=== PATIENT | female | born 1990 | race Caucasian/White ===

== ENCOUNTER 2024-03-27 13:59 | Emergency (ER) | payer OTHER, SELFPAY ==
[2024-03-27 14:06] VITALS: BP 158/90; PULSE 94; TEMP 36.6; O2SAT 99; BMI 34.2
--- NOTE | 2024-03-27 14:13 | ED_ITS ---
HPI - Dental/Oral General Chief complaint: Dental/Oral Stated complaint: MOUTH PAIN Time Seen by Provider: 03/27/24 14:09 Source: patient Mode of arrival: walk-in Limitations: no limitations History of Present Illness HPI Narrative: 33 year old female presents to the ED for left-sided dental pain. Onset was 1-2 days ago. Denies fever, chills, SOB, difficulty swallowing. She took Motrin 2 hours ago. Denies chance of . She reports an allergy to PCN. Related Data Previous Rx's ?Medication ?Instructions ?Recorded clindamycin HCl 300 mg capsule 300 mg PO TID 10 days #30 caps 03/27/24 Allergies Allergy/AdvReac Type Severity Reaction Status Date / Time Penicillins Allergy Severe Anaphylaxis Verified 03/27/24 14:05 Review of Systems ROS Constitutional Denies: fever or chills Eyes Denies: change in vision Ears, nose, mouth, and throat Reports: mouth pain; Denies: throat pain, neck pain, throat swelling, difficulty swallowing or ear pain Cardiovascular Denies: chest pain Respiratory Denies: shortness of breath Integumentary/Breast Denies: rash Neurological Denies: headache Exam Constitutional Vital Signs, click to edit/add: Last Vital Signs Temp 98 F 03/27/24 14:06 Pulse 94 H 03/27/24 14:06 Resp 20 03/27/24 14:06 BP 158/90 H 03/27/24 14:06 Pulse Ox 99 03/27/24 14:06 O2 Del Method Room Air 03/27/24 14:06 Common normals: no apparent distress and oriented x3 General appearance: cooperative HENMT Face and sinus: normal facial exam Nose: external nose normal External ear: external ears normal Tympanic membrane: TM normal on the left Mouth: oral and palatal mucosa normal, lip normal and tongue normal; no drooling, no muffled voice and no restricted motion Teeth and gingiva: poor dentition Throat: posterior oropharynx normal and uvula midline Other: No facial swelling. No swelling to floor of mouth. Pt speaking in full sentences, handling secretions well. Dental caries noted. No drainabe abscess. Eye Common normals: conjunctivae normal and no scleral icterus Neck & C-Spine Common normals: supple and no meningeal signs Chest Chest: symmetrical chest wall rise Respiratory Common normals: normal respiratory effort Effort & inspection: able to speak in complete sentences Cardio Rate: regular rate Neuro Common normals: oriented x3 Sensorium/orientation: awake and alert Course Vital Signs Vital signs: Vital Signs Temperature 98 F 03/27/24 14:06 Pulse Rate 94 H 03/27/24 14:06 Respiratory Rate 20 03/27/24 14:06 Blood Pressure 158/90 H 03/27/24 14:06 Pulse Oximetry 99 03/27/24 14:06 Oxygen Delivery Method Room Air 03/27/24 14:06 Temperature 98 F 03/27/24 14:06 Pulse Rate 94 H 03/27/24 14:06 Respiratory Rate 20 03/27/24 14:06 Blood Pressure 158/90 H 03/27/24 14:06 Pulse Oximetry 99 03/27/24 14:06 Oxygen Delivery Method Room Air 03/27/24 14:06 MDM - Dental/Oral MDM Narrative Medical decision making narrative: A prescription was provided for clindamycin. The patient has Motrin and Tylenol at home. She declined medication here. Follow up with a dentist for a recheck, further evaluation and treatment. Differential Diagnosis Differential diagnosis: Likely gingival abscess, dental caries, toothache and dental abscess Medical Records Attestation: I reviewed the patient's medical records. Discharge Plan Discharge Stand Alone Forms: Portal Instructions Chief Complaint: Dental/Oral Clinical Impression: Toothache, Dental infection Patient Disposition: Home, Self-Care Time of Disposition Decision: 14:11 Condition: Good Mode of Transportation: Private Vehicle Prescriptions / Home Meds: New clindamycin HCl 300 mg capsule 300 mg PO TID 10 Days Qty: 30 0RF Print Language: Georgian Instructions: Toothache (ED) Additional Instructions: Follow up with your dentist. Discharge Date/Time: 03/27/24 14:25
== END 2024-03-27 14:25 | disposition home or self-care (01) ==
LOC: ER 14:19
PROVIDERS: Emergency Provider Emergency Medicine; PCP Nurse Practitioner
DX: K04.7 Periapical abscess without sinus (principal); K08.89 Other specified disorders of teeth and supporting structures
CPT/HCPCS: 99283

== ENCOUNTER 2024-05-21 21:22 | Outpatient (REF) | payer OTHER, SELFPAY ==
--- OUTSIDE RECORDS SUMMARY | 2024-05-21 21:25 | XMS_ITS | CCD ---
Author Organization [facility] Care Team Providers Care Assistant Store Manager Operations Name Role Phone MARKER, NICKIE Admitting Unavailable MARKER, NICKIE Attending Unavailable DERRICK RUBI Primary Care Unavailable MARKER, NICKIE Consulting Unavailable AICHHOLZ, MATERIAL SPECIALIST NEETA Primary Care Unavailable PAY, DR SALDAÑA Admitting Unavailable PAY, DR SALDAÑA Attending Unavailable PAY, DR SALDAÑA Consulting Unavailable AYESHA, DR ABEBE Admitting Unavailable AYESHA, DR ABEBE Attending Unavailable AICHHOLZ, MATERIAL SPECIALIST NEETA Primary Care Unavailable AYESHA, DR ABEBE Consulting Unavailable AYESHA, DR ABEBE Admitting Unavailable AYESHA, DR ABEBE Attending Unavailable AICHHOLZ, MATERIAL SPECIALIST NEETA Primary Care Unavailable AYESHA, DR ABEBE Admitting Unavailable AYESHA, DR ABEBE Attending Unavailable AICHHOLZ, MATERIAL SPECIALIST NEETA Primary Care Unavailable AYESHA, DR ABEBE Consulting Unavailable AYESHA, DR ABEBE Admitting Unavailable AYESHA, DR ABEBE Attending Unavailable AICHHOLZ, MATERIAL SPECIALIST NEETA Primary Care Unavailable AYESHA, DR ABEBE Admitting Unavailable AYESHA, DR ABEBE Attending Unavailable AICHHOLZ, MATERIAL SPECIALIST NEETA Primary Care Unavailable AYESHA, DR ABEBE Consulting Unavailable AMADOU NEAL Consulting Unavailable LEILA EMILY Consulting Unavailable AYESHA, DR ABEBE Admitting Unavailable AYESHA, DR ABEBE Attending Unavailable AICHHOLZ, MATERIAL SPECIALIST NEETA Primary Care Unavailable AYESHA, DR ABEBE Consulting Unavailable AYESHA, DR ABEBE Procedure Practitioner Unavailab AMADOU Rojas Consulting Unavailable GIORGI, JAVON Consulting Unavailable JANE MARTINEZ Consulting Unavailable AICHHOLZ, NEETA J Primary Care Unavailable ANNA JAIMES Attending Unavailable ANNA JAIMES Referring Unavailable AICHHOLZ, NEETA J Primary Care Unavailable ANNA JAIMES Attending Unavailable ANNA JAIMES Referring Unavailable NEETA KAPADIA Primary Care Unavailable ALESHIA DAO Attending Unavailable Allergies Allergy Classification Reported Allergen(s) Allergy Type Date of Onset Reaction(s) Facility (2 sources) Penicillin Drug Allergy [facility] (1 source) beech pollen extract Drug Allergy [facility] (2 sources) natural latex rubber; Translations: [LATEX, NATURAL RUBBER] Drug allergy (disorder) [facility] Repository (1 source) Penicillins; Translations: [PENICILLINS] Propensity to adverse reactions to drug (disorder) [facility] Repository Problems Active Problems Problem Classification Problem Date Documented Da te Episodic/Chronic Abdominal pain (5 sources) Pelvic and perineal pain; Translations: [PELVIC AND PERINEAL PAIN] Onset: 07-23-2022 Episodic Anxiety disorders (1 source) Anxiety disorder, unspecified; Translations: [ANXIETY DISORDER UNSPECIFIED] Onset: 07-26-2022 Chronic Endometriosis (1 source) Endometriosis, unspecified; Translations: [ENDOMETRIOSIS UNSPECIFIED] Onset: 07-26-2022 Chronic Inflammatory diseases of female pelvic organs (1 source) Female pelvic peritoneal adhesions (postinfective); Translations: [FE PELV PERITON ADHES POSTINFECTIVE] Onset: 07-26-2022 Episodic Menstrual disorders (4 sources) Dysmenorrhea, unspecified; Translations: [Excessive and frequent menstruation with regular cycle] Onset: 09-03-2022 Chronic Mood disorders (1 source) Unspecified mood [affective] disorder; Translations: [UNSPECIFIED MOOD AFFECTIVE DISORDER] Onset: 07-26-2022 Chronic Other aftercare (1 source) Other salvage determiner (current) drug therapy; Translations: [OTH HYPO DIPPER CURRENT DRUG THERAPY] Onset: 09-08-2022 Episodic Other female genital disorders (1 source) Unspecified dyspareunia; Translations: [UNSPECIFIED DYSPAREUNIA] Onset: 09-08-2022 Chronic Other female genital disorders (1 source) Abnormal uterine and vaginal bleeding, unspecified; Translations: [ABNORMAL UTERINE VAGINAL BLEED UNS] Onset: 07-26-2022 Chronic Substance-related disorders (1 source) Nicotine dependence, cigarettes, uncomplicated; Translations: [NICOTINE DEPEND CIGARETTES UNCOMP] Onset: 07-26-2022 Chronic Superficial injury; contusion (1 source) Contusion of left knee, initial encounter; Translations: [Contusion of left knee, initial encounter] Onset: 05-02-2024 Episodic Unclassified (1 source) CONTACT W/AND (SUSP) EXPOS COVID-19; Translations: [CONTACT W/AND (SUSP) EXPOS COVID-19] Onset: 09-08-2022 Unclassified (1 source) Leg Injury Onset: 05-02-2024 Unclassified (1 source) Left Leg Pain & Swelling Onset: 05-02-2024 Past or Other Problems Problem Classification Problem Date Documented Da te Episodic/Chronic Disorders of teeth and jaw (5 sources) Other specified disorders of teeth and supporting structures; Translations: [Dental caries, unspecified] Onset: 04-28-2022 Episodic Other nervous system disorders (1 source) Atypical facial pain; Translations: [ATYPICAL FACIAL PAIN] Onset: 04-29-2022 Episodic Results Test Name Value Interpretation Reference Range Facil ity XR KNEE RT 3 VWSon XR KNEE RT 3 VWS XR KNEE RT 3 VWS CLINICAL INFORMATION: pain injury TECHNIQUE: XR KNEE RT 3 VWS 3 views right knee were obtained. There is no acute osseous, articular, or soft tissue abnormality. IMPRESSION: Negative exam. Finalized by Charles Amanda MD on 05/02/2024 7:42 PM Normal [facility] BUNon 09-04-2022 Urea nitrogen [Mass/Vol] 8.0 mg/dL Normal 7.0-18.[address] [facility] Comment on above: Performed By: #### T NS #### [facility] [address] [place] [address] Dr. Bhavani Novak CBC AUTO DIFFon 09-04-2022 BASO # 0.0 103/ul Normal 0.0-0.[address] [facility] Comment on above: Performed By: #### C BC #### [facility] [address] [place] [address] Dr. Bhavani Novak Basophils/100 WBC (Bld) 0.2 % Normal 0.2-2.[address] [facility] Comment on above: Performed By: #### C BC #### [facility] [address] [place] [address] Dr. Bhavani Novak EO # 0.0 103/ul Normal 0.0-0.[address] [facility] Comment on above: Performed By: #### C BC #### [facility] [address] [place] [address] Dr. Bhavani Novak Eosinophils/100 WBC (Bld) 0.1 % Critically low 0.9-7.[address] [facility] Comment on above: Performed By: #### C BC #### [facility] [address] [place] [address] Dr. Bhavani Novak Erythrocyte distribution width (RBC) [Ratio] 13.4 % Normal 11.0-15.[address] [facility] Comment on above: Performed By: #### C BC #### [facility] [address] [place] [address] Dr. Bhavani Novak Hematocrit (Bld) [Volume fraction] 42.1 % Normal 36.0-48.[address] [facility] Comment on above: Performed By: #### C BC #### [facility] [address] [place] [address] Dr. Bhavani Novak Hemoglobin (Bld) [Mass/Vol] 13.7 g/dL Normal 12.0-16.[address] [facility] Comment on above: Performed By: #### C BC #### [facility] [address] [place] [address] Dr. Bhavani Novak IG # 0.10 10e3/ul Critically high 0.00-0.03 [facility] Comment on above: Performed By: #### C BC #### [facility] [address] [place] [address] Dr. Bhavani Novak IG % 0.5 % Normal 0.0-0.[address] [facility] Comment on above: Performed By: #### C BC #### [facility] [address] [place] [address] Dr. Bhavani Novak LYMPH # 2.4 103/ul Normal 1.2-3.8 [facility] Comment on above: Performed By: #### C BC #### [facility] [address] [place] [address] Dr. Bhavani Novak Lymphocytes/100 WBC (Bld) 12.7 % Critically low 20.5-60.[address] [facility] Comment on above: Performed By: #### C BC #### [facility] [address] [place] [address] Dr. Bhavani Novak MANUAL DIFF REQ NO Normal [facility] Comment on above: Performed By: #### C BC #### [facility] [address] [place] [address] Dr. Bhavani Novak MCH (RBC) [Entitic mass] 28.8 pg Normal 26.7-34.[address] [facility] Comment on above: Performed By: #### C BC #### [facility] [address] [place] [address] Dr. Bhavani Novak MCHC (RBC) [Mass/Vol] 32.5 g/dL Normal 29.9-35.2 [facility] Comment on above: Performed By: #### C BC #### [facility] [address] [place] [address] Dr. Bhavani Novak MCV (RBC) [Entitic vol] 88.4 fL Normal 81.0-99.[address] [facility] Comment on above: Performed By: #### C BC #### [facility] [address] [place] [address] Dr. Bhavani Novak MONO # 0.9 103/ul Critically high 0.3-0.8 [facility] Comment on above: Performed By: #### C BC #### [facility] [address] [place] [address] Dr. Bhavani Novak Monocytes/100 WBC (Bld) 4.9 % Normal 1.7-12.0 [facility] Comment on above: Performed By: #### C BC #### [facility] [address] [place] [address] Dr. Bhavani Novak NEUT # 15.4 103/ul Critically high 1.4-6.5 [facility] Comment on above: Performed By: #### C BC #### [facility] [address] [place] [address] Dr. Bhavani Novak Neutrophils/100 WBC (Bld) 81.6 % Critically high 43.0-75.[address] [facility] Comment on above: Performed By: #### C BC #### [facility] [address] [place] [address] Dr. Bhavani Novak Platelet mean volume (Bld) [Entitic vol] 10.1 fL Normal 9.5-13.[address] [facility] Comment on above: Performed By: #### C BC #### [facility] [address] [place] [address] Dr. Bhavani Novak PLT 339 103/ul Normal 150-450 [facility] Comment on above: Performed By: #### C BC #### [facility] [address] [place] [address] Dr. Bhavani Novak RBC 4.76 106/ul Normal 4.20-5.[address] [facility] Comment on above: Performed By: #### C BC #### [facility] [address] [place] [address] Dr. Bhavani Novak WBC 18.9 103/ul Critically high 4.0-11.0 [facility] Comment on above: Performed By: #### C BC #### [facility] [address] [place] [address] Dr. Bhavani Novak CREATININEon 09-04-2022 Creatinine [Mass/Vol] 0.90 mg/dL Normal 0.55-1.[address] [facility] Comment on above: Performed By: #### T NS #### [facility] [address] [place] [address] Dr. Bhavani Novak EGFR-AF MACANESE >60 Normal >=60 [facility] Comment on above: Performed By: #### T NS #### [facility] [address] [place] [address] Dr. Bhavani Novak EGFR-NON AF MACANESE >60 Normal >=60 [facility] Comment on above: Performed By: #### T NS #### [facility] [address] [place] [address] Dr. Bhavani Novak CBC AUTO DIFFon 09-03-2022 BASO # 0.1 103/ul Normal 0.0-0.1 [facility] Comment on above: Performed By: #### C BC #### [facility] [address] [address] [address] Bhavani Novak Basophils/100 WBC (Bld) 0.6 % Normal 0.2-2.[address] [facility] Comment on above: Performed By: #### C BC #### [facility] [address] [address] [address] Bhavani Novak EO # 0.2 103/ul Normal 0.0-0.[address] [facility] Comment on above: Performed By: #### C BC #### [facility] [address] [place] [address] Dr. Bhavani Novak Eosinophils/100 WBC (Bld) 2.1 % Normal 0.9-7.[address] [facility] Comment on above: Performed By: #### C BC #### [facility] [address] [place] [address] Dr. Bhavani Novak Erythrocyte distribution width (RBC) [Ratio] 13.5 % Normal 11.0-15.[address] [facility] Comment on above: Performed By: #### C BC #### [facility] [address] [place] [address] Dr. Bhavani Novak Hematocrit (Bld) [Volume fraction] 43.3 % Normal 36.0-48.[address] [facility] Comment on above: Performed By: #### C BC #### [facility] [address] [place] [address] Dr. Bhavani Novak Hemoglobin (Bld) [Mass/Vol] 14.3 g/dL Normal 12.0-16.[address] [facility] Comment on above: Performed By: #### C BC #### [facility] [address] [place] [address] Dr. Bhavani Novak IG # 0.03 10e3/ul Normal 0.00-0.[address] [facility] Comment on above: Performed By: #### C BC #### [facility] [address] [place] [address] Dr. Bhavani Novak IG % 0.3 % Normal 0.0-0.5 [facility] Comment on above: Performed By: #### C BC #### [facility] [address] [place] [address] Dr. Bhavani Novak LYMPH # 3.6 103/ul Normal 1.2-3.[address] [facility] Comment on above: Performed By: #### C BC #### [facility] [address] [place] [address] Dr. Bhavani Novak Lymphocytes/100 WBC (Bld) 32.1 % Normal 20.5-60.[address] [facility] Comment on above: Performed By: #### C BC #### [facility] [address] [place] [address] Dr. Bhavani Novak MANUAL DIFF REQ NO Normal [facility] Comment on above: Performed By: #### C BC #### [facility] [address] [place] [address] Dr. Bhavani Novak MCH (RBC) [Entitic mass] 29.4 pg Normal 26.7-34.[address] [facility] Comment on above: Performed By: #### C BC #### [facility] [address] [place] [address] Dr. Bhavani Novak MCHC (RBC) [Mass/Vol] 33.0 g/dL Normal 29.9-35.[address] [facility] Comment on above: Performed By: #### C BC #### [facility] [address] [place] [address] Dr. Bhavani Novak MCV (RBC) [Entitic vol] 89.1 fL Normal 81.0-99.[address] [facility] Comment on above: Performed By: #### C BC #### [facility] [address] [place] [address] Dr. Bhavani Novak MONO # 0.5 103/ul Normal 0.3-0.[address] [facility] Comment on above: Performed By: #### C BC #### [facility] [address] [place] [address] Dr. Bhavani Novak Monocytes/100 WBC (Bld) 4.3 % Normal 1.7-12.[address] [facility] Comment on above: Performed By: #### C BC #### [facility] [address] [place] [address] Dr. Bhavani Novak NEUT # 6.8 103/ul Critically high 1.4-6.5 [facility] Comment on above: Performed By: #### C BC #### [facility] [address] [place] [address] Dr. Bhavani Novak Neutrophils/100 WBC (Bld) 60.6 % Normal 43.0-75.[address] [facility] Comment on above: Performed By: #### C BC #### [facility] [address] [place] [address] Dr. Bhavani Novak Platelet mean volume (Bld) [Entitic vol] 9.5 fL Normal 9.5-13.[address] [facility] Comment on above: Performed By: #### C BC #### [facility] [address] [place] [address] Dr. Bhavani Novak PLT 345 103/ul Normal 150-450 [facility] Comment on above: Performed By: #### C BC #### [facility] [address] [place] [address] Dr. Bhavani Novak RBC 4.86 106/ul Normal 4.20-5.40 [facility] Comment on above: Performed By: #### C BC #### [facility] [address] [place] [address] Dr. Bhavani Novak WBC 11.2 103/ul Critically high 4.0-11.0 [facility] Comment on above: Performed By: #### C BC #### [facility] [address] [place] [address] Dr. Bhavani Novak PREG HCG QUALon 09-03-2022 , QUAL Negative Normal NEGATIVE [facility] Comment on above: Performed By: #### P REG #### [facility] [address] [place] [address] Dr. Bhavani Novak Covid-19 PCR (CVDTB)on SARS-CoV-2 (COVID-19) RNA ERIKA+probe Ql (Unsp spec) Not detected Normal NOT DETECTED [facility] Comment on above: Result Comment: This test is not yet approved or cleared by the [place] FDA. When there are no FDA-approved or cleared tests available, and other criteria are met, FDA can make tests available under an emergency access mechanism called an Emergency Use Authorization (EUA). The EUA for this test is supported by the Last Pattern Grader of Health and Human Service's (HHS's) declaration that circumstances exist to justify the emergency use of in vitro diagnostics for the detection and/or diagnosis of the virus that causes COVID-19. This EUA will remain in effect (meaning this test can be used) for the duration of the COVID-19 declaration justifying emergency of IVDs, unless it is terminated or revoked by FDA (after which the test may no longer be used). When diagnostic testing is negative, the possibility of a false negative should be considered in the context of a patient's recent exposures and the presence of clinical signs and symptoms consistent with SARS-CoV-2. Performed By: #### C VDTB #### [facility] [address] [place] [address] Dr. Bhavani Novak TYPE AND SCREENon 08-31-2022 TYPE AND SCREEN Negative Normal [facility] Comment on above: Performed By: #### T NS #### [facility] [address] [place] [address] Dr. Bhavani Novak CBC AUTO DIFFon 07-23-2022 BASO # 0.1 103/ul Normal 0.0-0.1 [facility] Comment on above: Performed By: #### C BC #### [facility] [address] [place] [address] Dr. Bhavani Novak Basophils/100 WBC (Bld) 0.6 % Normal 0.2-2.0 [facility] Comment on above: Performed By: #### C BC #### [facility] [address] [place] [address] Dr. Bhavani Novak EO # 0.2 103/ul Normal 0.0-0.[address] [facility] Comment on above: Performed By: #### C BC #### [facility] [address] [place] [address] Dr. Bhavani Novak Eosinophils/100 WBC (Bld) 2.5 % Normal 0.9-7.[address] [facility] Comment on above: Performed By: #### C BC #### [facility] [address] [place] [address] Dr. Bhavani Novak Erythrocyte distribution width (RBC) [Ratio] 13.5 % Normal 11.0-15.[address] [facility] Comment on above: Performed By: #### C BC #### [facility] [address] [place] [address] Dr. Bhavani Novak Hematocrit (Bld) [Volume fraction] 42.9 % Normal 36.0-48.[address] [facility] Comment on above: Performed By: #### C BC #### [facility] [address] [place] [address] Dr. Bhavani Novak Hemoglobin (Bld) [Mass/Vol] 14.2 g/dL Normal 12.0-16.[address] [facility] Comment on above: Performed By: #### C BC #### [facility] [address] [place] [address] Dr. Bhavani Novak IG # 0.03 10e3/ul Normal 0.00-0.[address] [facility] Comment on above: Performed By: #### C BC #### [facility] [address] [place] [address] Dr. Bhavani Novak IG % 0.3 % Normal 0.0-0.[address] [facility] Comment on above: Performed By: #### C BC #### [facility] [address] [place] [address] Dr. Bhavani Novak LYMPH # 3.3 103/ul Normal 1.2-3.8 [facility] Comment on above: Performed By: #### C BC #### [facility] [address] [place] [address] Dr. Bhavnai Novak Lymphocytes/100 WBC (Bld) 35.1 % Normal 20.5-60.[address] [facility] Comment on above: Performed By: #### C BC #### [facility] [address] [place] [address] Dr. Bhavani Novak MANUAL DIFF REQ NO Normal [facility] Comment on above: Performed By: #### C BC #### [facility] [address] [address] [address] Bhavani Novak MCH (RBC) [Entitic mass] 29.6 pg Normal 26.7-34.[address] [facility] Comment on above: Performed By: #### C BC #### [facility] [address] [place] [address] Dr. Bhavani Novak MCHC (RBC) [Mass/Vol] 33.1 g/dL Normal 29.9-35.[address] [facility] Comment on above: Performed By: #### C BC #### [facility] [address] [place] [address] Dr. Bhavani Novak MCV (RBC) [Entitic vol] 89.4 fL Normal 81.0-99.[address] [facility] Comment on above: Performed By: #### C BC #### [facility] [address] [place] [address] Dr. Bhavani Novak MONO # 0.4 103/ul Normal 0.3-0.[address] [facility] Comment on above: Performed By: #### C BC #### [facility] [address] [place] [address] Dr. Bhavani Novak Monocytes/100 WBC (Bld) 4.2 % Normal 1.7-12.[address] [facility] Comment on above: Performed By: #### C BC #### [facility] [address] [place] [address] Dr. Bhavani Novak NEUT # 5.3 103/ul Normal 1.4-6.5 [facility] Comment on above: Performed By: #### C BC #### [facility] [address] [place] [address] Dr. Bhavani Novak Neutrophils/100 WBC (Bld) 57.3 % Normal 43.0-75.0 [facility] Comment on above: Performed By: #### C BC #### [facility] [address] [place] [address] Dr. Bhavani Novak Platelet mean volume (Bld) [Entitic vol] 9.7 fL Normal 9.5-13.[address] [facility] Comment on above: Performed By: #### C BC #### [facility] [address] [address] [address] Bhavani Novak PLT 328 103/ul Normal 150-450 [facility] Comment on above: Performed By: #### C BC #### [facility] [address] [address] [address] Bhavani Novak RBC 4.80 106/ul Normal 4.20-5.[address] [facility] Comment on above: Performed By: #### C BC #### [facility] [address] [address] [address] Bhavani Novak WBC 9.3 103/ul Normal 4.0-11.[address] [facility] Comment on above: Performed By: #### C BC #### [facility] [address] [place] [address] Dr. Bhavani Novak PREG HCG QUALon 07-23-2022 , QUAL Negative Normal NEGATIVE [facility] Comment on above: Performed By: #### P REG #### [facility] [address] [address] [address] Bhavani Novak Covid-19 PCR (CVDTB)on 06-29 SARS-CoV-2 (COVID-19) RNA ERIKA+probe Ql (Unsp spec) Not detected Normal NOT DETECTED [facility] Comment on above: Result Comment: This test is not yet approved or cleared by the [place] FDA. When there are no FDA-approved or cleared tests available, and other criteria are met, FDA can make tests available under an emergency access mechanism called an Emergency Use Authorization (EUA). The EUA for this test is supported by the Last Pattern Grader of Health and Human Service's (HHS's) declaration that circumstances exist to justify the emergency use of in vitro diagnostics for the detection and/or diagnosis of the virus that causes COVID-19. This EUA will remain in effect (meaning this test can be used) for the duration of the COVID-19 declaration justifying emergency of IVDs, unless it is terminated or revoked by FDA (after which the test may no longer be used). When diagnostic testing is negative, the possibility of a false negative should be considered in the context of a patient's recent exposures and the presence of clinical signs and symptoms consistent with SARS-CoV-2. Performed By: #### C [facility] #### [facility] [address] [place] [address] Dr. Bhavani Wood 02-17-2021 CNPN Telephone (GYNMN) CATRINA VYAS ([id number]) 1990 F Date Time Provider Department 02/17/21 YUE ALFARO ([facility]) GYNMN During your visit today, we recorded the following information about you: Julia Mccann RN, RN 02/17/2021 12:39 PM Signed I attempted to call Catrina Vyas, with no answer. Voicemail left regarding scheduling I US and MIGS appt. Gave patient [facility] office phone number and my number to call back at earliest convenience. Sent [facility] message too. Julia Mccann RN, BSN Julia Mccann RN, RN 02/24/2021 11:43 AM Signed I attempted to call Catrina Vyas, with no answer. Voicemail left regarding scheduling US and MIGS appt. Offered 03/23 and 03/27 with openings in both MIGS and US. Gave patient [facility] office phone number to call back at earliest convenience. Julia Mccann RN, RN 03/10/2021 8:35 AM Signed Called patient to schedule MIGS and US appts. Patient stated she cannot come to the [facility] anymore due to transportation issues living 2 hours away she would not be able to make trips back and forth. Notified pt she can make an appt any time if she decides to come back. Patient verbalizes understanding. Julia Mccann RN Allergies As of Date: 02/17/2021 Noted Allergy Reaction PENICILLINS 02/17/2021 10 - Anaphylaxis Date Reviewed: Never Reviewed Reason for Visit: Care Coordination [3491] Cmt: Schedule US and MIGS appt Prescriptions as of 02/17/2021 Sig: BUSPIRONE 5 MG TABLET Take 5 mg by mouth once daily. TRANEXAMIC ACID 650 MG TABLET Take 650 mg by mouth three ti* BACLOFEN 10 MG VAGINAL SUPPOS* insert one suppository vagina* Problem List As Of Date: 02/17/2021 (None) Encounter Status:Closed by JULIA MCCANN on 02/17/21 [facility] Encounters Encounter Date Encounter Type Care Provider Facility Start: 05-08-2024 End: 05-08-2024 ambulatory ALESHIA DAO Not Available Start: 05-02-2024 End: 05-03-2024 Emergency department patient visit [facility] Start: 05-02-2024 End: 05-03-2024 Emergency department patient visit [facility] Start: 09-08-2022 Encounter for prepro cedural laboratory examination DR MIS HYATT [facility] Start: 09-03-2022 Encounter for prepro cedural laboratory examination DR MIS HYATT [facility] Start: 09-03-2022 End: 09-04-2022 Evaluation and management of inpatient DR MIS HYATT Facility:[facility] Start: 08-31-2022 End: 09-01-[address] MIS HYATT Facility:[facility] Start: 08-31-2022 End: 09-01-2022 Encounter for preprocedural laboratory examination DR MIS HYATT Facility:[facility] Start: 08-26-2022 Encounter for other preprocedural examination DR MIS HYATT [facility] Start: 08-24-2022 End: 08-25-[address] MIS HYATT Facility:[facility] Start: 08-24-2022 End: 08-25-2022 Encounter for other preprocedural examination DR MIS HYATT Facility:[facility] Start: 07-23-2022 End: 07-23-[address] MIS HYATT Facility:[facility] Start: 07-20-2022 End: 07-21-[address] MIS HYATT Facility:[facility] Start: 07-14-2022 End: 07-15-[address] MIS HYATT Facility:[facility] Start: 04-28-2022 End: 04-28-2022 ambulatory DWIGHT KAPADIA Facility:[facility] Start: 05-24-2018 End: 05-24-2018 Patient encounter procedure NICKIE MARKER Facility:[facility] Procedures Date Procedure Procedure Detail Performing Clinician Start: 09-03-2022 Resection of Uterus, Open Approach DWIGHT KAPADIA Payers Date Payer Category Payer Unknown [id number] 2.16.84 [id number] 1990 Unknown [id number] 2.16.84 [id number] 1990 Unknown [id number] 2.16.84 [id number] 1988 Unknown [id number] 2.16.84 [id number] 1988 Unknown [id number] 2.16.84 [id number] 1988 Unknown [id number] 2.16.84 [id number] 1988 Unknown [id number] 2.16.84 [id number] 1988 Unknown [id number] 2.16.84 [id number] 1988 Unknown [id number] 2.16.8 [id number] 1988 Unknown [id number] 2.16.8 [id number] 1988 Unknown [id number] 2.16.8 [id number] 1988 Unknown [id number] 2.16.84 [id number] 1961 Self-pay 1961 Unknown [id number] Clinical Note 09-03-2022 Note Date & Type Note Facility 09-03-2022 Note OPERATIVE NOTE OPERATION DATE: 09/03/2022 PROCEDURE: Total abdominal hysterectomy with cystoscopy. PREOPERATIVE DIAGNOSIS: Menorrhagia, pelvic pain, dysmenorrhea, dyspareunia. POSTOPERATIVE DIAGNOSIS: Menorrhagia, pelvic pain, dysmenorrhea, dyspareunia. ANESTHESIA: General. SURGEON: Mis Hyatt D.O. HOUSING COORDINATOR: YOVANA Valenzuela URINE OUTPUT: Yellow and clear. BLOOD LOSS: 50 mL. SPECIMEN: Uterus. FINDING: Normal appearing ovaries, absent tubes. PROCEDURE: Patient was taken back to the Operating Room where she was given general anesthesia without difficulty. She was then prepped and draped in the normal sterile fashion. A Pfannenstiel skin incision was then made 2 cm above the symphysis and pubis and carried down to underlying rectus fascia using a Bovie. The fascia was incised in the midline and extended bilaterally using Castillo scissors. Two Isaac clamps were placed on the superior aspect of the fascia and dissected off the underlying rectus muscle. The same was performed on the inferior aspect as well. The muscle was then in the midline. The peritoneum was identified and entered bluntly. Peritoneum was then extended superiorly and inferiorly with good visualization of the bladder. An O'Remy- O-Baltazar retractor was placed into the patient's abdomen. The bowel was packed away with moist laparotomy sponges and the bladder blade was inserted. A Leahey tenaculum was placed on the patient's uterus and used for retraction. LigaSure apparatus was then used to come across the infundibulopelvic ligament on the patient's right side which was then cauterized and transected. This was carried down serially through the broad ligament and across the round ligament. The bladder flap was then created using the Metzenbaum scissors, and the bladder was easily dissected off the patient's lower uterine segment. A curved Floyd was placed across the uterine artery on the right side which was clamped, transected, and suture ligated using #0 Monocryl. This was performed on the contralateral side as well. The bladder was further dissected and a Zeppelin clamp was then placed across the uterosacral and cardinal ligaments. This was transected and suture ligated using #0 Monocryl. This was performed on the contralateral side as well. The uterus was then amputated using Francisco scissors. The patient's cuff was closed using #0 PDS in a running locked fashion and this was transfixed to the ipsilateral uterosacral and cardinal ligaments. Excellent hemostasis was assured. The patient's abdomen was copiously irrigated using warm saline. Cystoscopy was performed. Bladder was intact. Efflux was noted from both ostia. Cystoscope was removed. After excellent hemostasis was assured, all instruments were removed from the patient's abdomen. The patient's peritoneum was closed using 3-0 Vicryl in a running fashion. The patient's fascia was closed using #0 Vicryl in a running fashion. The patient's skin was closed using adams. The patient tolerated the procedure well. Sponge, lap, and needle counts were correct times two. Patient taken to the Recovery Room in stable condition. [facility] Discharge summary note 09-03-2022 Note Date & Type Note Facility 09-03-2022 Note DISCHARGE SUMMARY DISCHARGE DATE: 09/04/2022 PRIMARY DIAGNOSES: 1. Menorrhagia. 2. Pelvic pain. 3. Dysmenorrhea. 4. Dyspareunia. PROCEDURE: Total abdominal hysterectomy with cystoscopy. HOSPITAL COURSE: As expected. Please see chart for full details. LABORATORY DATA: Please see chart. COMPLICATIONS: None. DISCHARGE CONDITION: Stable. CONSULTATION: Anesthesia. DISCHARGE INSTRUCTIONS: 1. Diet: Regular. 2. Medications: a. Percocet 5/325 one to two p.o. every 4-6 hours p.r.n. pain. b. Motrin 800 one p.o. every 8 hours p.r.n. pain. 3. Followup in one week. Restrictions: Pelvic rest for 6 weeks. No heavy lifting. May drive when pain free and no longer on narcotics. [facility] Clinical Note 07-23-2022 Note Date & Type Note Facility 07-23-2022 Note OPERATIVE NOTE OPERATION DATE: 07/23/2022 PROCEDURE: Diagnostic laparoscopy. PREOPERATIVE DIAGNOSIS: Pelvic pain, abnormal uterine bleeding, dyspareunia, dysmenorrhea. POSTOPERATIVE DIAGNOSIS: Pelvic pain, abnormal uterine bleeding, dyspareunia, dysmenorrhea. ANESTHESIA: General. SURGEON: Mis Hyatt D.O. HOUSING COORDINATOR: Renée Rampman, STAINED GLASS JOINER URINE OUTPUT: Yellow and clear. BLOOD LOSS: 5 mL. FINDINGS: Significant adhesions of the uterus to the anterior abdominal wall. Normal appearing ovaries. Absent tubes. PROCEDURE: The patient was taken back to the Operating Room where she was placed in dorsal lithotomy position after given general anesthesia. The patient was prepped and draped in normal sterile fashion. A sponge stick was placed into the patient's vagina. Attention was turned to the patient's abdomen, where a small umbilical incision was made. The fascia was tented using Isaac clamps and the fascia was entered sharply. Confirmation of intra-abdominal placement of the 10 mm port was confirmed under direct visualization using a laparoscope. The patient's abdomen was then insufflated using CO2 gas with approximately 4 liters. A second port was placed left laterally, this was done under direct visualization with a 5 mm port. Survey of the patient's abdomen demonstrated normal liver and gallbladder. Survey of the patient's pelvic anatomy demonstrated normal appearing ovaries and tubes as well as normal appearing uterus. No endometrial implants could be noted, no evidence of any pelvic disease was seen, normal appearing pelvic cavity. All instruments were removed from the patient's abdomen. The patient's abdomen was desufflated of CO2 gas. The patient tolerated the procedure well. Sponge stick was removed from the patient's vagina. The patient's infraumbilical fascia was closed using #0 Vicryl on a GI needle. The patient's skin was closed laterally and infraumbilically using 4-0 Vicryl. The patient tolerated the procedure well. Sponge, lap and needle counts were correct x 2. The patient was taken to Recovery Room in stable condition. [facility] Progress note 02-17-2021 Note Date & Type Note Facility 02-17-2021 Note HNO ID: [id number] Author: Yue Alfaro Service: ? Author Type: Nurse Practitioner Type: Progress Notes Filed: 02/17/2021 11:15 AM Note Text: [facility] SECTION FOR MINIMALLY INVASIVE GYNECOLOGIC SURGERY OUTPATIENT VISIT DATE September 24, 2020 OUTPATIENT VISIT TYPE NEW REFERRING PHYSICIAN: Self Consultation requested by self for an opinion regarding Catrina Vyas, and my final recommendations will be communicated back to the requesting physician by way of shared medical record or letter via [place] mail. DATE OF SERVICE: 02/17/2021 CHIEF COMPLAINT: Catrina Vyas is a pleasant 30 year old No obstetric history on file. female who presents with a history of ENDOMETRIOSIS and Pelvic pain. She desires hysterectomy. Hx of x3 and salpingectomy, was told all her organs were stuck together d/t scar tissue or endometriosis. She describes her symptoms as heavy painful periods Menses are q 28-31 days, bleeds for 5 days, changes pad/tampon every 2 hours Symptoms have been present for 7 years Her pain is felt at these locations: low pelvic Pain radiates to low mid back Her pain is worse during her menses. She is taking or tried the following for menses suppression: RX given for Lysteda 2 weeks ago from her local patient access manager, Dr. George. This is significantly slowing her bleeding. She has also tried OCPs from [id number] which did not help her symptoms. She also states her hormones were severely swinging, nice/mean/emotional all in the same day. She did conceive while she was on OCPs. Also tried depo provera for 1 year in 2011, this gave her amenorrhea but she had salpingectomy and didn't need the contraception. She does not want to go back on this because it made her mood swings worse. She does have pain w intercourse on deep penetration for many years She does not have post coital bleeding She reports the following bowel complaints: none. She reports the following bladder complaints: none. She does not work She has not visited the Emergency Room for the pain. She does not desire future child bearing. She has not been a victim of emotional, physical, or sexual abuse. Aggravating factors: sitting. Alleviating factors: none. Nonsurgical attempts to ameliorate her pain have included: Tylenol, Motrin, heat do not help Attempted surgical treatment has been as follows: None, prior c-sect x3 and salpingectomy (2008 OR, 2010 [facility], 2011, and salpingectomy later in 2011) IMAGING: none Past Gynecologic History: Menarche: 9 yrs LMP: 02/14/21 Last pap cytology: ?abnormal History of abnormal history Yes History of STI: No History of PID: No Past Obstetrical History: Vaginal delivery: 0 Section: 3 Ectopic: 0 Miscarriage:2 Past Medical History: History reviewed. No pertinent past medical history. Past Surgical History: PAST SURGICAL HISTORY Procedure Laterality Date - DELIVERY ONLY 2008, 2010, 2011 - SALPINGECTOMY 2012 Family History: No family history on file. Social History: Social History Tobacco Use - Smoking status: Not on file Substance Use Topics - Alcohol use: Not on file - Drug use: Not on file No current outpatient medications on file. No current facility-administered medications for this visit. Allergies As of Date: 02/17/2021 Allergen Noted Reaction PENICILLINS 02/17/2021 Anaphylaxis reviewed none REVIEW OF SYSTEMS: Constitutional: Denies fever or chills Eyes: Denies change in visual acuity HENT: Denies nasal congestion or sore throat Respiratory: Denies cough or shortness of breath Cardiovascular: Denies chest pain or edema GI: Denies abdominal pain, nausea, vomiting, bloody stools or diarrhea : Denies dysuria Musculoskeletal: Denies back pain or joint pain Integument: Denies rash Neurologic: +headaches Endocrine: Denies polyuria or polydipsia Lymphatic: Denies swollen glands Psychiatric: +anxiety PHYSICAL EXAMINATION: Vital Signs: 02/17/21 0822 Weight: 92.1 kg (203 lb) Height: 167.6 cm (5' 6 ) Body mass index is 32.77 kg/m?. General Appearance: WDWN, NAD Psychiatric: Normal orientation, mood and affect Neck: Thyroid normal, no masses Breasts: Deferred Skin:No rashes, lesions, or ulcers Lymph: Normal groin C/V: Normal heart sounds, no murmurs or external edema Lungs: Respiratory effort normal. Lungs clear bilaterally. Abdomen: Benign, soft, non-tender, no hernia, masses, or lymphadenpathy The remainder of her PE deferred due to telemedicine visit ASSESSMENT AND PLAN: Catrina Vyas is a 30 year old . female who presents with pelvic pain s/p x3 and salpingectomy. Encounter Diagnosis ICD-10-CM 1. Pelvic pain in female R10.2 PELVIC US [facility] baclofen vaginal suppository 10 mg (CPD) CONSULT TO MINIMALLY INVASIVE GYNECOLOGIC SURGERY 2. Menorrhagia with regular cycle N92.0 CONSULT TO MINIMALLY INVASIVE GYNECOLOGIC SURGERY P (more content not included)... [facility] Summary Purpose Family History No Family History Records FoundNo Family History Records FoundNo Family History Records FoundNo Family History Records FoundNo Family History Records Found Advance Directives No Advanced Directives Records FoundNo Advanced Directives Records FoundNo Advanced Directives Records FoundNo Advanced Directives Records FoundNo Advanced Directives Records Found Additional Source Comments INFORMATION SOURCE (unrecogn ized section and content) DATE CREATED AUTHOR 09/01/2019 [facility] DATE CREATED AUTHOR AUTHOR'S ORGANIZ ATION 12/27/2021 [facility] DATE CREATED AUTHOR AUTHOR'S ORGANIZ ATION 09/08/2022 [facility] DATE CREATED AUTHOR AUTHOR'S ORGANIZ ATION 05/04/2024 [facility] DATE CREATED AUTHOR AUTHOR'S ORGANIZ ATION 05/08/2024 [facility] dicme Specialists [facility] FOR RECORDS PERTAINING TO PATIENTS WHO ARE OR HAVE BEEN ENROLLED IN A CHEMICAL DEPENDENCY/SUBSTANCEABUSE PROGRAM, SOME INFORMATION MAY BE OMITTED. This clinical summary was aggregated from multiple sources. Caution should be exercised in using it in the provision of clinical care. This summary normalizes information from multiple sources, and as a consequence, information in this document may materially change the coding, format and clinical context of patient data. In addition, data may be omitted in some cases. CLINICAL DECISIONS SHOULD BE BASED ON THE PRIMARY CLINICAL RECORDS. [facility] [employer] provides no warranty or guarantee of the accuracy or completeness of information in this document.
[2024-05-21 22:00] LABS: Bilirubin Urine NEGATIVE (NEGATIVE); Blood Urine SMALL (NEGATIVE); Clarity Urine CLEAR (CLEAR); Color Urine YELLOW (YELLOW); Glucose Urine UA NEGATIVE (NEGATIVE); Ketones Urine NEGATIVE (NEGATIVE); Leukocyte Esterase Urine LARGE (NEGATIVE); Nitrite Urine NEGATIVE (NEGATIVE); Protein Urine NEGATIVE (NEG/TRACE); Urobilinogen Urine 0.2 EU/dL (0.2-1.0)
[2024-05-21 22:01] LABS: Urine Microscopic Indicated YES
[2024-05-21 22:07] LABS: Bacteria Urine MODERATE #/HPF (NONE SEEN); Cast Seen? NONE SEEN #/LPF (NONE SEEN); Crystals Seen? None Seen #/HPF (None Seen); Mucus Urine NONE SEEN (NONE SEEN); RBC Urine 0-2 #/HPF (0-2); Squamous Epithelial Cell Urine FEW #/LPF (NONE/RARE); Transitional Epi Cells Urine RARE #/LPF (NONE SEEN); Urine Culture Indicated ALREADY ORDERED
== END 2024-05-21 21:23 | disposition home or self-care (01) ==
LOC: LAB 21:22
PROVIDERS: PCP Nurse Practitioner; Visit Provider Nurse Practitioner
DX: N30.00 Acute cystitis without hematuria (principal)
CPT/HCPCS: 81001; 87086; 87106

== ENCOUNTER 2024-11-17 14:13 | Emergency (ER) | payer MEDICAID, SELFPAY ==
[2024-11-17 14:17] VITALS: BP 132/75; PULSE 83; TEMP 36.9; O2SAT 96; BMI 30.5
--- OUTSIDE RECORDS SUMMARY | 2024-11-17 14:22 | XMS_ITS | CCD ---
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 General. SURGEON: Mis Hyatt D.O. BLANKET WINDER OPERATOR: YOVANA Valenzuela URINE OUTPUT: Yellow and clear. [...] the Recovery Room in stable condition. [facility] Discharge summary note 09-03-2022 Note Date & [...] free and no longer on narcotics. [facility] Clinical Note 07-23-2022 Note Date & Type Note Facility 07-23-2022 Note OPERATIVE NOTE OPERATION DATE: 07/23/2022 PROCEDURE: Diagnostic laparoscopy. PREOPERATIVE DIAGNOSIS: Pelvic pain, abnormal uterine bleeding, dyspareunia, dysmenorrhea. POSTOPERATIVE DIAGNOSIS: Pelvic pain, abnormal uterine bleeding, dyspareunia, dysmenorrhea. ANESTHESIA: General. SURGEON: Mis Hyatt D.O. BLANKET WINDER OPERATOR: YOVANA Toro URINE OUTPUT: Yellow and clear. BLOOD LOSS: [...] to Recovery Room in stable condition. [facility] Progress note 02-17-2021 Note Date & Type Note Facility 02-17-2021 Note HNO ID: [id number] Author: Yue Alfaro Service: ? Author Type: Nurse Practitioner Type: Progress Notes Filed: 02/17/2021 11:15 AM Note Text: [facility] SECTION FOR MINIMALLY INVASIVE GYNECOLOGIC SURGERY OUTPATIENT [...] Lysteda 2 weeks ago from her local medication technician, Dr. George. This is significantly slowing her bleeding. She has also tried OCPs from [id number] which did not help her symptoms. She [...] None, prior c-sect x3 and salpingectomy (2008 [place], 2010 [facility], 2011, and salpingectomy later in 2011) [...] DELIVERY ONLY 2008, 2010, 2011 - SALPINGECTOMY 2011 Family History: No family history on file. [...] GYNECOLOGIC SURGERY P (more content not included)... [facility] Summary Purpose Family History No Family History Records FoundNo Family History Records FoundNo Family History Records FoundNo Family History Records FoundNo Family History Records Found Advance Directives No Advanced Directives Records FoundNo Advanced Directives Records FoundNo Advanced Directives Records FoundNo Advanced Directives Records FoundNo Advanced Directives Records Found Additional Source Comments INFORMATION SOURCE (unrecogn ized section and content) DATE CREATED AUTHOR 09/01/2019 [facility] DATE CREATED AUTHOR AUTHOR'S ORGANIZ ATION 12/27/2021 [facility] DATE CREATED AUTHOR AUTHOR'S ORGANIZ ATION 09/08/2022 [facility] DATE CREATED AUTHOR AUTHOR'S ORGANIZ ATION 05/28/2024 [facility] DATE CREATED AUTHOR AUTHOR'S ORGANIZ ATION 11/07/2024 [facility] FOR RECORDS PERTAINING TO PATIENTS WHO ARE [...] BE BASED ON THE PRIMARY CLINICAL RECORDS. [employer] [facility]. provides no warranty or guarantee of the accuracy or completeness of information in this document.
--- NOTE | 2024-11-17 14:38 | CT_ITS ---
The [address] [address] Patient Name: ILDEFONSO VYAS MRN: [id number] date: 1990 Sex: F Assigned Patient Location: ER Current Patient Location: ER Accession/Order Number: [id number] Exam Date: 11/17/2024 15:00 Report Date: 11/17/2024 15:58 At the request of: LEON BOWMAN Procedure: CT facial bones wo con EXAM: Facial bones CT without contrast. Dose reduction technique used: Automated exposure control and/or adjustment of the mA and/or kV according to patient size and/or use of iterative reconstruction technique. REASON FOR EXAM: infection COMPARISON: None FINDINGS: Left maxillary small periapical abscess with overlying soft tissue swelling but without a definite associated soft tissue abscess. No acute facial bone or paranasal sinus fractures. Bilateral orbits are intact. No mandible fracture or dislocation. Bilateral globes are grossly intact. No orbital hematoma or inflammatory changes. Right maxillary sinus mucus retention cyst. Paranasal sinuses are otherwise clear. Remainder unremarkable. CT/CT facial bones wo con IMPRESSION: Left maxillary periapical abscess with overlying soft tissue infection without soft tissue abscess. Electronically authenticated by: FRANSISCO FALCON Date: 11/17/2024 15:58
[2024-11-17] MEDS: LEVOFLOXACIN 750 MG TABLET PO (16:17)
[2024-11-17] MEDS: METRONIDAZOLE 250 MG TABLET 500 MG PO (16:17)
--- NOTE | 2024-11-17 16:34 | ED_ITS ---
HPI - Dental/Oral General Chief complaint: Dental/Oral Stated complaint: FACIAL SWELLING NON TRAUMATIC Time Seen by Provider: 11/17/24 14:23 History of Present Illness HPI Narrative: The patient is coming to the ER with a 24 hours history of left-sided facial swelling, the patient denies any other complaints although she mentioned that she does not have any active dental issues Patient is complaining right now with left-sided dental pain Related Data Previous Rx's ?Medication ?Instructions ?Recorded ibuprofen 600 mg tablet 600 mg PO Q8H PRN pain #20 tabs 11/17/24 levofloxacin 750 mg tablet 750 mg PO DAILY 7 days #7 tabs 11/17/24 metronidazole 500 mg tablet 500 mg PO Q8H 7 days #21 tabs 11/17/24 Allergies Allergy/AdvReac Type Severity Reaction Status Date / Time Penicillins Allergy Severe Anaphylaxis Verified 03/27/24 14:05 Review of Systems ROS Status of ROS 10 or more systems reviewed and unremark able except as noted in history and below PFSH PFSH Social History Little interest or pleasure in doing things: not at all Feeling down, depressed, or hopeless: not at all Exam Narrative Exam Narrative: Nurses notes and vital signs reviewed and patient is not hypoxic. General: Well-appearing and in no apparent distress. Skin: Warm, dry, no pallor noted. No rash. Head: Normocephalic, atraumatic. There is a significant swelling of the left face maxillary area Dental : The patient examination showed that she have a good dental hygiene but there is a area of redness just above the left for #11 tooth, there is no tenderness upon palpation of the tooth Neck: Supple, non-tender. Eye: Pupils are equal, round and EOMI. No scleral icterus. Ears, Nose, Mouth, and Throat: TM are clear, no nasal mucosal hypertrophy. Oral mucosa is moist, no posterior oropharynx erythema, uvula is mid-line Cardiovascular: Regular Rate and Rhythm without murmur, gallop or rub Respiratory: No accessory muscle use or respiratory distress. Lungs are clear to auscultation, no wheezing, rales or rhonchi Chest Wall: no tenderness Back: No midline thoracic or lumbar vertebral tenderness. No CVA tenderness Musculoskeletal: normal ROM, no calf or popliteal tenderness, no lower extremity edema/swelling GI: Abdomen is soft, non-distended. Normal bowel sounds. No masses appreciated. No tenderness to palpation. No rebound, guarding, or rigidity noted. Neurological: A&O x4. No cranial nerve dysfunction observed. No truncal ataxia. Moves all extremities. Sensation intact. Psychiatric: Cooperative and interactive. Normal mood and affect. Constitutional Vital Signs, click to edit/add: Last Vital Signs Temp 98.5 F 11/17/24 14:17 Pulse 83 11/17/24 14:17 Resp 18 11/17/24 14:17 BP 132/75 11/17/24 14:17 Pulse Ox 96 11/17/24 14:17 O2 Del Method Room Air 11/17/24 14:17 Course Vital Signs Vital signs: Vital Signs Temperature 98.5 F 11/17/24 14:17 Pulse Rate 83 11/17/24 14:17 Respiratory Rate 18 11/17/24 14:17 Blood Pressure 132/75 11/17/24 14:17 Pulse Oximetry 96 11/17/24 14:17 Oxygen Delivery Method Room Air 11/17/24 14:17 Temperature 98.5 F 11/17/24 14:17 Pulse Rate 83 11/17/24 14:17 Respiratory Rate 18 11/17/24 14:17 Blood Pressure 132/75 11/17/24 14:17 Pulse Oximetry 96 11/17/24 14:17 Oxygen Delivery Method Room Air 11/17/24 14:17 MDM - Dental/Oral MDM Narrative Medical decision making narrative: The patient CAT scan of the face shows periapical abscess Patient have no systemic symptoms of infection She was started on levofloxacin and Flagyl and discharged home with instruction to follow-up with a dentist with outpatient Ibuprofen for pain control The patient is to follow up with primary care physician in next 2-3 days or to return to the emergency department should any of the signs or symptoms worsen or new symptoms develop. The patient agrees with the following Diagnosis and Treatment plan and the patient will be discharged home. Discharge Plan Discharge Chief Complaint: Dental/Oral Clinical Impression: Dental infection Patient Disposition: Home, Self-Care Time of Disposition Decision: 16:33 Condition: Good Prescriptions / Home Meds: New metronidazole 500 mg tablet 500 mg PO Q8H 7 Days Qty: 21 0RF levofloxacin 750 mg tablet 750 mg PO DAILY 7 Days Qty: 7 0RF ibuprofen 600 mg tablet 600 mg PO Q8H PRN (Reason: pain) Qty: 20 0RF Print Language: [place] Instructions: Dental Abscess (ED) Referrals: Anel Verde NP [Primary Care Provider] - 1 week Discharge Date/Time: 11/17/24 16:43
[2024-11-17] MEDS: BENZOCAINE 30 ML, lidocaine HCL 15 ML MM (16:38)
[2024-11-17] MEDS: IBUPROFEN 600 MG TABLET PO (16:39)
== END 2024-11-17 16:43 | disposition home or self-care (01) ==
PROVIDERS: Emergency Provider Emergency Medicine; PCP Nurse Practitioner
DX: K04.7 Periapical abscess without sinus (principal)
CPT/HCPCS: 70486; 99285